=== PATIENT | female | born 1940 | race Caucasian/White ===

== ENCOUNTER 2025-06-14 09:31 | Outpatient (CLI) | payer MEDICARE | END 2025-06-14 09:32 | disposition home or self-care (01) | LOC: BICCT 09:31 | PROVIDERS: ATTEND Psychiatry & Neurology Sleep Medicine | DX: G35 Multiple sclerosis (principal); M47.12 Other spondylosis with myelopathy, cervical region | CPT/HCPCS: 36415; 72125; 80053; 81001; 85025; 87086 ==